=== PATIENT | female | born 1940 | race Caucasian/White ===

== ENCOUNTER 2016-12-13 21:59 | Inpatient (IN) | payer MEDICARE, OTHER ==
[~2016-12-13] VITALS: Ht 157.5 cm; Wt 67.0 kg
[~2016-12-13 21:59] MED LIST: ALEN70TA30 PO; MELO-110 PO; METH10TA5 PO; MONT10TA21 PO; TRAM-408 PO
[2016-12-13 22:13] VITALS: Ht 157.5 cm; Wt 67.0 kg
[2016-12-14] MEDS ORDERED: SOD CHLORIDE 0.9% 500 ML IV STA (01:02)
[2016-12-14] MEDS ORDERED: morphine 4 MG/ML VIAL IV STA (01:02)
[2016-12-14] MEDS ORDERED: ONDANSETRON 4 MG INJ IV STA (01:02)
--- NOTE | 2016-12-14 01:52 | RADRPT ---
PROCEDURE: XR Chest. CLINICAL INDICATION: Abdominal pain. TECHNIQUE: Single frontal view of the chest. COMPARISON: 11/22/2011. FINDINGS: The cardiomediastinal silhouette is within normal limits. Decreased lung inflation over interval wit h mild left costophrenic angle atelectasis. The lungs are otherwise clear. No signs of pleural fluid or pneumothorax are seen. The osseous structures and soft tissues are unremarkable. IMPRESSION: Mild left costophrenic angle atelectasis. RPTAT: [facility] Physician Denise Date Time Electronically viewed and signed by Physician Denise on 12/14/2016 01:51 RS/
[2016-12-14 01:56] LABS: BASOPHILS % 0.3 % (0.0-2.0); EOSINOPHILS # 0.1 10^3/ul (0.0-0.5); EOSINOPHILS % 0.8 % (0.0-7.0); HEMATOCRIT 36.9 % (37.0-47.0); HEMOGLOBIN 11.6 g/dl (12.0-16.0); LYMPHOCYTES # 2.7 10^3/ul (0.8-2.9); LYMPHOCYTES % 22.6 % (15.0-51.0); MEAN CORPUSCULAR HEMOGLOBIN 30.8 pg (29.0-33.0); MEAN CORPUSCULAR HGB CONC 31.4 g/dl (32.0-37.0); MEAN CORPUSCULAR VOLUME 97.9 fl (82.0-101.0); MEAN PLATELET VOLUME 9.4 fl (7.4-10.4); MONOCYTE # 1.1 10^3/ul (0.3-0.9); PLATELET COUNT 360 10^3/UL (140-415); RED BLOOD COUNT 3.77 10^6/ul (4.20-5.40); RED CELL DISTRIBUTION WIDTH 13.1 % (11.5-14.5); WHITE BLOOD COUNT 11.9 10^3/ul (4.8-10.8)
--- NOTE | 2016-12-14 02:07 | RADRPT ---
PROCEDURE: CT Abdomen and Pelvis without contrast. CLINICAL INDICATION: Abdominal pain TECHNIQUE: CT scan of the abdomen and pelvis without contrast was performed on a multidetector hig h-resolution CT scanner. The patient was scanned without intravenous contrast. Coronal and sagittal reformatted images were obtained from the axial source images. Images were reviewed on a high-resol RFEyeD PACS workstation. The total exam CTDI equals 11.14 mGy and the total exam DLP equals 628.88 mG y-cm. One or more the following dose reduction techniques were utilized: Automated exposure control, adjus tment of the mA and / or kV according to patient's size, or use of iterative reconstruction techniqu e. COMPARISON: 11/22/2011 FINDINGS: Linear atelectasis/fibrosis at the lung bases. No pneumoperitoneum is seen. Hepatic steatosis again seen. The length of the liver equals 18.1 cm consistent with minimal hepatomegaly minimally larger c ompared to previous study. Small calcified granulomas again seen in the liver. Cholelithiasis again seen. No biliary dilatation is seen. There is peripancreatic soft tissue stranding appearing since p revious study suggestive of acute pancreatitis. No abnormality seen in the spleen, adrenals or right kidney. Arterial calcification in left renal hilum appearing since the previous study. The stomach is not distended. There is likely a small hiatal hernia again seen. No abdominal aortic aneurysm is seen. No abnormality of the bladder is seen. No definite abnormality of the uterus or adnexal region s is seen on CT. Beam-hardening artifact arising from the right hip prosthesis projected over lower pelvis limiting evaluation. Soft tissue stranding in subcutaneous fat lateral to the right hip increased compared to previous study. There is nonspecific. No ascites is seen. Diverticula in the s igmoid, transverse colon. There is no specific evidence of acute diverticulitis seen. There is an un remarkable appendix. No dilated small bowel loops are seen. No enlarged lymph nodes are seen in the abdomen or pelvis. Degenerative changes in thoracolumbar spine. Central spinal stenosis in lumbar sp ine. Degenerative changes at sacroiliac joints. Diffuse osteopenia. Mild osteoarthrosis at left hip. Compression fracture L4 vertebral body again seen. IMPRESSION: Suggestive of acute pancreatitis appearing since previous study. Hepatic steatosis again seen. Minim al hepatomegaly with liver minimally increased in size compared to previous study. Cholelithiasis ag ain seen. Likely small hiatal hernia again seen. Please see above. RPTAT: HJES .Dmitriy Dubon MD, Date Time Electronically viewed and signed by .Dmitriy Dubon MD, on 12/14/2016 02:06 .S/
[2016-12-14 02:08] LABS: ALANINE AMINOTRANSFERASE 193 IU/L (13-69); ALBUMIN 4.4 g/dl (3.3-4.9); ALKALINE PHOSPHATASE 117 IU/L (42-121); ANION GAP 16 (8-16); ASPARTATE AMINO TRANSFERASE 73 IU/L (15-46); BILIRUBIN,INDIRECT 0.4 mg/dl (0-1.1); BILIRUBIN,TOTAL 0.4 mg/dl (0.2-1.3); BLOOD UREA NITROGEN 10 mg/dl (7-20); CALCIUM 9.4 mg/dl (8.4-10.2); CARBON DIOXIDE 26 mmol/L (21-31); CHLORIDE 103 mmol/L (97-110); CREATININE 0.64 mg/dl (0.44-1.00); GLUCOSE 113 mg/dl (70-220); POTASSIUM 3.7 mmol/L (3.5-5.1); SODIUM 141 mmol/L (135-144); TOTAL PROTEIN 8.4 g/dl (6.1-8.1)
[2016-12-14 02:20] LABS: TROPONIN-I < 0.012 ng/ml (0.00-0.12)
[2016-12-14 02:45] LABS: ADD UMIC YES; UR ASCORBIC ACID NEGATIVE (NEGATIVE); UR BACTERIA FEW /HPF (NONE SEEN); UR BILIRUBIN (Dip) NEGATIVE (NEGATIVE); UR BLOOD (Dip) NEGATIVE (NEGATIVE); UR CLARITY SLIGHTLY CLOUDY (CLEAR); UR COLOR YELLOW (YELLOW); UR GLUCOSE (Dip) NEGATIVE (NEGATIVE); UR KETONES (Dip) TRACE mg/dL (NEGATIVE); UR LEUKOCYTE ESTERASE (Dip) 2+ Leu/ul (NEGATIVE); UR NITRITE (Dip) NEGATIVE (NEGATIVE); UR RBC 2 /HPF (0-5); UR SPECIFIC GRAVITY (Dip) 1.013 (1.003-1.030); UR SQUAMOUS EPITHELIAL CELL FEW /HPF (FEW); UR TOTAL PROTEIN (Dip) NEGATIVE (NEGATIVE); UR UROBILINOGEN (Dip) 2+ mg/dL (NEGATIVE)
--- NOTE | 2016-12-14 02:51 | ERA ---
ER Documentation Chief Complaint Date/Time DATE: 12/14/16 TIME: 02:50 Chief Complaint AP +N/V X2DAYS. +FEVER TODAY. CONSTIPAITION X3 DAYS HPI 76 female abdominal pain nausea vomiting for 2 days. She has episodes of vomiting which she has had a bile in them. No fevers no chills. She is also complains of constipation for 3 days. Pain is mild to moderate intensity. No other current issues. ROS All systems reviewed and are negative except as per history of present illness. Medications Home Meds Reported Medications Tramadol Hcl (Rybix Odt) 50 Mg Tab.rapdis, PO TID 11/22/11 Alendronate Sodium* (Fosamax*) 70 Mg Tablet, PO 11/22/11 Montelukast Sodium* (Singulair*) 10 Mg Tablet, PO DAILY 11/22/11 Meloxicam* (Mobic*) 15 Mg Tablet, PO DAILY 11/22/11 Methimazole* (Methimazole*) 10 Mg Tablet, PO DAILY 11/22/11 Allergies Allergies: Coded Allergies: No Known Allergy (Unverified , 12/13/16) PMhx/Soc Medical and Surgical Hx: pt denies Medical Hx History of Surgery: Yes (R Hip) Anesthesia Reaction: No ( ) Hx Neurological Disorder: No Hx Respiratory Disorders: No Hx Cardiac Disorders: No (htn, hyperlipidemia ) Hx Psychiatric Problems: No Hx Miscellaneous Medical Probl: No Hx Alcohol Use: No Hx Substance Use: No Hx Tobacco Use: No Smoking Status: Never smoker Physical Exam Vitals Vital Signs Date Time Temp Pulse Resp B/P Pulse Ox O2 Delivery O2 Flow Rate FiO2 12/13/16 22:13 99.2 110 20 179/73 94 Physical Exam Const: [] Head: Atraumatic Eyes: Normal Conjunctiva ENT: Normal External Ears, Nose and Mouth. Neck: Full range of motion..~ No meningismus. Resp: Clear to auscultation bilaterally Cardio: Regular rate and rhythm, no murmurs Abd: Soft, non tender, non distended. Normal bowel sounds Skin: No petechiae or rashes Back: No midline or flank tenderness Ext: No cyanosis, or edema Neur: Awake and alert Psych: Normal Mood and Affect Result Diagram: 12/14/16 0127 12/14/16 0127 Results 24 hrs Laboratory Tests Test 12/14/16 01:27 12/14/16 02:15 White Blood Count 11.910^3/ul Red Blood Count 3.7710^6/ul Hemoglobin 11.6g/dl Hematocrit 36.9% Mean Corpuscular Volume 97.9fl Mean Corpuscular Hemoglobin 30.8pg Mean Corpuscular Hemoglobin Concent 31.4g/dl Red Cell Distribution Width 13.1% Platelet Count 19380^3/UL Mean Platelet Volume 9.4fl Neutrophils % 67.0% Lymphocytes % 22.6% Monocytes % 9.0% Eosinophils % 0.8% Basophils % 0.3% Nucleated Red Blood Cells % 0.0/100WBC Neutrophils # (Manual) 8.010^3/ul Lymphocytes # 2.710^3/ul Monocytes # 1.110^3/ul Eosinophils # 0.110^3/ul Basophils # 0.010^3/ul Nucleated Red Blood Cells # 0.010^3/ul Sodium Level 141mmol/L Potassium Level 3.7mmol/L Chloride Level 103mmol/L Carbon Dioxide Level 26mmol/L Anion Gap 16 Blood Urea Nitrogen 10mg/dl Creatinine 0.64mg/dl Glucose Level 113mg/dl Calcium Level 9.4mg/dl Total Bilirubin 0.4mg/dl Direct Bilirubin 0.00mg/dl Indirect Bilirubin 0.4mg/dl Aspartate Amino Transf (AST/SGOT) 73IU/L Alanine Aminotransferase (ALT/SGPT) 193IU/L Alkaline Phosphatase 117IU/L Troponin I < 0.012ng/ml Total Protein 8.4g/dl Albumin 4.4g/dl Globulin 4.00g/dl Albumin/Globulin Ratio 1.10 Lipase 162U/L Urine Color YELLOW Urine Clarity SLIGHTLY CLOUDY Urine pH 5.0 Urine Specific [place] 1.013 Urine Ketones TRACEmg/dL Urine Nitrite NEGATIVEmg/dL Urine Bilirubin NEGATIVEmg/dL Urine Urobilinogen 2+mg/dL Urine Leukocyte Esterase 2+Dg/ul Urine Microscopic RBC 2/HPF Urine Microscopic WBC 27/HPF Urine Squamous Epithelial Cells FEW/HPF Urine Bacteria FEW/HPF Urine Hemoglobin NEGATIVEmg/dL Urine Glucose NEGATIVEmg/dL Urine Total Protein NEGATIVEmg/dl Current Medications Medications (Trade) Dose Ordered Sig/Lelo Route PRN Reason Start Time Stop Time Status Last Admin Dose Admin Sodium Chloride (NS) 500 ml @ 500 mls/hr Q1H STAT IV 12/14/16 01:02 12/14/16 02:01 DC 12/14/16 01:53 Morphine Sulfate (morphine) 4 mg ONCE STAT IV 12/14/16 01:02 12/14/16 01:05 DC 12/14/16 02:32 Ondansetron HCl (Zofran Inj) 4 mg ONCE STAT IV 12/14/16 01:02 12/14/16 01:05 DC 12/14/16 02:31 Procedures/MDM Medical decision-makin-year-old female with acute pancreatitis. At this point patient will be admitted to the hospitalist. Departure Diagnosis: Primary Impression: Pancreatitis Qualified Code: K85.90 - Acute pancreatitis, unspecified complication status, unspecified pancreatitis type Condition: Serious JOJO DERAS Dec 14, 2016 02:51
[2016-12-14] MEDS ORDERED: ALBU8.5H3 INH (03:29)
[2016-12-14] MEDS ORDERED: ESOM40CA PO (03:29)
[2016-12-14] MEDS ORDERED: VALS80TA2 PO (03:29)
[2016-12-14] MEDS ORDERED: METO25TA7 PO (03:29)
[2016-12-14] MEDS ORDERED: TOLT4CAP13 PO (03:29)
[2016-12-14] MEDS ORDERED: NAPR-685 PO (03:29)
[2016-12-14] MEDS ORDERED: ASPI-664 PO (03:29)
[2016-12-14] MEDS ORDERED: METF500T4 PO (03:29)
[2016-12-14] MEDS ORDERED: MECL-77 PO (03:29)
[2016-12-14] MEDS ORDERED: IBUP-1542 PO (03:29)
[2016-12-14] MEDS ORDERED: PRAV20TA63 PO (03:29)
[2016-12-14] MEDS ORDERED: DEXTROSE 5%-0.45% NACL 1,000 ML IV SCH (09:10)
[2016-12-14] MEDS ORDERED: ACETAMINOPHEN 325 MG TAB PO PRN (09:30)
[2016-12-14] MEDS ORDERED: NACL 0.9% 3 ML SYG IV SCH (09:30)
[2016-12-14] MEDS ORDERED: ALBUTEROL/IPRATROPIUM (NEB) 3 ML AMP HHN PRN (09:30)
[2016-12-14] MEDS ORDERED: morphine 2 MG INJ IV PRN (09:30)
[2016-12-14] MEDS ORDERED: ONDANSETRON 4 MG INJ IV PRN (09:30)
[2016-12-14] MEDS ORDERED: GLUCAGON 1 MG INJ IM PRN (10:00)
[2016-12-14] MEDS ORDERED: GLUCOSE GEL 15 GRAM TUBE PO PRN ×2 (10:00)
[2016-12-14] MEDS ORDERED: DEXTROSE 50% 50 ML SYRINGE IV PRN ×2 (10:00)
[2016-12-14] MEDS ORDERED: GLUCOSE GEL 15 GRAM TUBE BUCCAL PRN (10:00)
--- NOTE | 2016-12-14 10:52 | HP ---
Date/Time of Note Date/Time of Note DATE: 12/14/16 TIME: 10:46 Assessment/Plan VTE Prophylaxis VTE Prophylaxis Intervention: SCD's Assessment/Plan Assessment/Plan 1. Abdominal pain, probably secondary to gallstone pancreatitis -Keep n.p.o. with IV fluid -Pain management -Surgical consult has been placed given cholelithiasis and a likely finding of acute pancreatitis on a CT scan 2. Hypertension -Antihypertensives adjustment as needed 3. Type 2 diabetes -Insulin while in-house 4. History of dyslipidemia -Continue statin HPI/ROS Admit Date/Time Admit Date/Time Hx of Present Illness This is a 76-year-old female with a history of hypertension diabetes dyslipidemia who presents to the emergency department complaining of abdominal pain. Pain started 3 days ago. At mainly located in the periumbilical area. She reported associated nonbloody nonbilious emesis. She said that she has not had a bowel movement for the past 3 days. No fever or chills. She also denied chest pain or shortness of breath. She denied drinking alcohol. When she presented to the ER, labs shows AST of 73, ALT almost 200. Lipase is normal at 162. CT abdomen/pelvis however showedSuggestive of acute pancreatitis appearing since previous study. Hepatic steatosis again seen. Minimal hepatomegaly with liver minimally increased in size compared to previous study. Cholelithiasis again seen. Likely small hiatal hernia again seen. PMH/Family/Social Social History Smoking Status: Never smoker Exam/Review of Systems Vital Signs Vitals Vital Signs Date Time Temp Pulse Resp B/P Pulse Ox O2 Delivery O2 Flow Rate FiO2 12/14/16 09:11 104 18 126/79 95 Room Air 12/13/16 22:13 99.2 Exam Constitutional: alert, oriented, well developed Head: atraumatic, normocephalic Eyes: EOMI, PERRL Respiratory: clear to auscultation, normal air movement Cardiovascular: nl pulses, regular rate and rhythm Gastrointestinal: other (There is some tenderness to deep palpation in the periumbilical area with no guarding, rebound tenderness or rigidity. There is positive bowel sounds), soft Extremities: normal pulses Labs Result Diagram: 12/14/1612612/14/16 0127 Medications Medications Current Medications Dextrose/Sodium Chloride (D5-1/2ns) 1,000 ml @ 100 mls/hr Q10H IV Last administered on 12/14/16t 09:10; Admin Dose 100 MLS/HR; Start 12/14/16 at 09:10 Ondansetron HCl (Zofran Inj) 4 mg Q6H PRN IV NAUSEA AND/OR VOMITING; Start 03/20 at 09:30 Acetaminophen (Tylenol Tab) 650 mg Q6H PRN PO PAIN LEVEL 1-3 OR FEVER; Start at 09:30 Morphine Sulfate (morphine) 3 mg Q4H PRN IV pain; Start 12/14/16 at 09:30 Diagnostic Test (Pha) (Accu-Chek) 1 ea 02 XX ; Start 12/15/16 at 02:00 Insulin Glargine (Lantus) 13 unit QHS SC ; Start 12/14/16 at 21:00 Aspirin (Halfprin) 81 mg DAILY PO ; Start 12/15/16 at 09:00 Metoprolol Succinate (Toprol Xl) 25 mg DAILY PO ; Start 12/15/16 at 09:00 Pantoprazole (Protonix Tab) 40 mg DAILY@06 PO ; Start 12/15/16 at 06:00 Atorvastatin Calcium (Lipitor) 10 mg DAILY@21 PO ; Start 12/14/16 at 21:00 Miscellaneous Information 1 ea NOTE XX ; Start 12/14/16 at 10:00 Glucose (Glutose) 15 gm Q15M PRN PO DECREASED GLUCOSE; Start 12/14/16 at 10:00 Glucose (Glutose) 22.5 gm Q15M PRN PO DECREASED GLUCOSE; Start 12/14/16 at 10: 00 Dextrose (D50w Syringe) 25 ml Q15M PRN IV DECREASED GLUCOSE; Start 12/14/16 at 10:00 Dextrose (D50w Syringe) 50 ml Q15M PRN IV DECREASED GLUCOSE; Start 12/14/16 at 10:00 Glucagon (Glucagen) 1 mg Q15M PRN IM DECREASED GLUCOSE; Start 12/14/16 at 10:00 Glucose (Glutose) 15 gm Q15M PRN BUCCAL DECREASED GLUCOSE; Start 12/14/16 at 10 :00 JOJO ZAVALETA MD Dec 14, 2016 10:52
[2016-12-14] MEDS: INSULIN ASPART [NOVOLOG] 3 ML PEN SC SCH ×3 (12:00→21:00)
--- NOTE | 2016-12-14 12:18 | QN ---
Documentation Comment Observation Note: Time: 4 hours Family Hx: Negative for diabetes Evaluation: Multiple exams showed improving symptoms and no evidence of clinical decompensation. The patient does not have any obvious need for telemetry at this time and I will downgrade to med surg. She has been here for 14 hours and has had no significant arrhythmias. GUME ERNANDEZ MD Dec 14, 2016 12:18
--- NOTE | 2016-12-14 12:35 | CONS ---
Date/Time of Note Date/Time of Note DATE: 12/14/16 TIME: 12:35 Assessment/Plan Assessment/Plan Additional Assessment/Plan [facility] INPATIENT CONSULTATION NOTE DATE OF SERVICE: 12/14/2016 PLACE OF SERVICE: [facility], emergency department (boarding only) ASSESSMENT AND PLAN: A very-pleasant 76-year-old lady with comorbidity of BMI 27, admitted through the emergency department at [facility] on 12/14/2016 with abdominal pain of unclear etiology. It is unclear to me whether the pain and symptoms are related to the pancreas since her lipase is normal and CT findings are equivocal in my opinion. Gallbladder also could be a suspect, but the appearance of it on the CT scan is again equivocal. In short , I do not see any obvious surgical issues, but agree that the patient should be observed in house and perhaps further testing to be done if needed. With above assessment, I've recommended the followin. Continue current management 2. Will follow with you 3. Labs in a.m. 4. Possible need for right upper quadrant ultrasound or even a HIDA scan if indicated 5. Consider starting clear liquid diet and advancing as tolerated Thank you very much for having me involved in the care of this very pleasant patient and wonderful family. If you have any questions, please feel free to contact me at [phone]. Nature of presenting problem: Moderate severity Please note that, given the multiple number of diagnoses or management options, the moderate amount and/or complexity of data needed to be reviewed, and moderate risk of complications and/or morbidity or mortality, this qualifies as moderate complexity type of decision-making. Disclaimer: Inadvertent spelling and grammatical errors are likely due to EHR/ dictation software use and do not reflect on the quality of delivered patient care. Also, please note that the electronic time recorded on this node does not necessarily reflect the actual time of the visit. Updated clinical summary: A very-pleasant 76-year-old lady with comorbidity of BMI 27, admitted through the emergency department at [facility] on 12/14/2016 with abdominal pain of unclear etiology. Comorbidities: 1. BMI 27 2. Possible small hiatal hernia 3. Mild hepatomegaly 4. Degenerative changes in thoracolumbar spine 5. Central spinal stenosis and lumbar spine. 6. Degenerative changes at sacroiliac joints. 7. Diffuse osteopenia. 8. 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 9. Compression fracture L4 vertebral body. 10. Hepatic steatosis. 11. Cholelithiasis. 12. Hypertension 13. Type 2 diabetes 14. Dyslipidemia CONSULTATION REQUESTED BY: Maya Bernabe MD HISTORY OF PRESENT ILLNESS: The patient is a very pleasant 76-year-old lady with above-mentioned comorbidities whom were kindly asked to consult regarding management of abdominal pain. 3 day history of abdominal pain in the periumbilical region. Nonbloody and nonbilious emesis reported. Constipated for the last 3 days. No other major symptoms. Lipase was normal. WBC 11.9. CT scan report suggested possible pancreatitis. Known cholelithiasis. ALLERGIES: NO KNOWN DRUG ALLERGIES MEDICATIONS Documented in the electronic records and reviewed by me. Please see the electronic records for details, as well as details for inpatient medications which were also reviewed by me. SOCIAL HISTORY: The patient lives with family.-Tob;-ETOH;-IVDU FAMILY HISTORY: There are no significant medical, surgical or oncologic issues in the family as reported by the patient or reflected in the chart. REVIEW OF SYSTEMS: Other than mentioned above, there were no other pertinent positives or pertinent negatives in an otherwise complete 14 point review of systems. PHYSICAL EXAMINATION GENERAL: The patient appears to be a very pleasant lady of [place] descent lying in bed, appearing stated age, and otherwise in no acute distress. BMI: 27 VITAL SIGNS: AVSS (please also see auto important data if available as well as the electronic records) HEENT: Normocephalic and atraumatic. Extraocular muscles and hearing are grossly intact bilaterally and symmetrically. Sclerae are nonicteric. Oral cavity is clear; oral mucosa appear to be pink and moist. Dentition: Fair to poor with dentures. NECK: Supple. There is no lymphadenopathy or JVD. There is no submental, submandibular or supraclavicular lymphadenopathy. CHEST: Rises symmetrically with each breath; patient is breathing comfortably. There are no audible wheezes, rales or rhonchi on the gross exam. HEART: Pulse is regular and palpable on the right wrist. Capillary refill is normal. Carotid pulses are palpable bilaterally and symmetrically in the neck. EXTREMITIES: Lower extremities contain no pitting edema around the ankles bilaterally and symmetrically. ABDOMEN: Abdomen is soft, nontender and nondistended. No evidence of ascites, organomegaly, caput medusae, engorged subcutaneous veins, or other abnormalities. There are no peritoneal signs or guarding. SKIN: Appears to be pink and feels warm to touch. NEUROLOGIC: Awake, alert, and follows commands appropriately. LABORATORY DATA: See below IMAGING: See electronic chart. Please note that I've personally reviewed all pertinent available images and I agree in general with their overall reported findings. Consultation Date/Type/Reason Admit Date/Time Social History Smoking Status: Never smoker Exam/Review of Systems Vital Signs Vitals Vital Signs Date Time Temp Pulse Resp B/P Pulse Ox O2 Delivery O2 Flow Rate FiO2 12/14/16 12:26 97 18 122/65 96 Room Air 12/13/16 22:13 99.2 Results Result Diagram: 12/14/1612612/14/16126 Results 24 hrs Laboratory Tests Test 12/14/16 01:27 12/14/16 02:15 White Blood Count 11.9 H Red Blood Count 3.77 L Hemoglobin 11.6 L Hematocrit 36.9 L Mean Corpuscular Volume 97.9 Mean Corpuscular Hemoglobin 30.8 Mean Corpuscular Hemoglobin Concent 31.4 L Red Cell Distribution Width 13.1 Platelet Count 360 Mean Platelet Volume 9.4 Neutrophils % 67.0 Lymphocytes % 22.6 Monocytes % 9.0 Eosinophils % 0.8 Basophils % 0.3 Nucleated Red Blood Cells % 0.0 Neutrophils # (Manual) 8.0 H Lymphocytes # 2.7 Monocytes # 1.1 H Eosinophils # 0.1 Basophils # 0.0 Nucleated Red Blood Cells # 0.0 Sodium Level 141 Potassium Level 3.7 Chloride Level 103 Carbon Dioxide Level 26 Anion Gap 16 Blood Urea Nitrogen 10 Creatinine 0.64 Glucose Level 113 Calcium Level 9.4 Total Bilirubin 0.4 Direct Bilirubin 0.00 Indirect Bilirubin 0.4 Aspartate Amino Transf (AST/SGOT) 73 H Alanine Aminotransferase (ALT/SGPT) 193 H Alkaline Phosphatase 117 Troponin I < 0.012 Total Protein 8.4 H Albumin 4.4 Globulin 4.00 H Albumin/Globulin Ratio 1.10 Lipase 162 Urine Color YELLOW Urine Clarity SLIGHTLY CLOUDY A Urine pH 5.0 Urine Specific [place] 1.013 Urine Ketones TRACE A Urine Nitrite NEGATIVE Urine Bilirubin NEGATIVE Urine Urobilinogen 2+ H Urine Leukocyte Esterase 2+ H Urine Microscopic RBC 2 Urine Microscopic WBC 27 H Urine Squamous Epithelial Cells FEW Urine Bacteria FEW A Urine Hemoglobin NEGATIVE Urine Glucose NEGATIVE Urine Total Protein NEGATIVE Medications Medications Current Medications Dextrose/Sodium Chloride (D5-1/2ns) 1,000 ml @ 100 mls/hr Q10H IV Last administered on 12/14/16t 09:10; Admin Dose 100 MLS/HR; Start 12/14/16 at 09:10 Ondansetron HCl (Zofran Inj) 4 mg Q6H PRN IV NAUSEA AND/OR VOMITING; Start 03/20 at 09:30 Acetaminophen (Tylenol Tab) 650 mg Q6H PRN PO PAIN LEVEL 1-3 OR FEVER; Start at 09:30 Morphine Sulfate (morphine) 3 mg Q4H PRN IV pain; Start 12/14/16 at 09:30 Diagnostic Test (Pha) (Accu-Chek) 1 ea 02 XX ; Start 12/15/16 at 02:00 Insulin Glargine (Lantus) 13 unit QHS SC ; Start 12/14/16 at 21:00 Aspirin (Halfprin) 81 mg DAILY PO ; Start 12/15/16 at 09:00 Metoprolol Succinate (Toprol Xl) 25 mg DAILY PO ; Start 12/15/16 at 09:00 Pantoprazole (Protonix Tab) 40 mg DAILY@06 PO ; Start 12/15/16 at 06:00 Atorvastatin Calcium (Lipitor) 10 mg DAILY@21 PO ; Start 12/14/16 at 21:00 Miscellaneous Information 1 ea NOTE XX ; Start 12/14/16 at 10:00 Glucose (Glutose) 15 gm Q15M PRN PO DECREASED GLUCOSE; Start 12/14/16 at 10:00 Glucose (Glutose) 22.5 gm Q15M PRN PO DECREASED GLUCOSE; Start 12/14/16 at 10: 00 Dextrose (D50w Syringe) 25 ml Q15M PRN IV DECREASED GLUCOSE; Start 12/14/16 at 10:00 Dextrose (D50w Syringe) 50 ml Q15M PRN IV DECREASED GLUCOSE; Start 12/14/16 at 10:00 Glucagon (Glucagen) 1 mg Q15M PRN IM DECREASED GLUCOSE; Start 12/14/16 at 10:00 Glucose (Glutose) 15 gm Q15M PRN BUCCAL DECREASED GLUCOSE; Start 12/14/16 at 10 :00 GABY LUCERO M.D. Dec 14, 2016 12:35
[2016-12-14] MEDS: DEXTROSE 5%-0.45% NACL 1,000 ML IV SCH ×2 (13:00→22:01)
[2016-12-14 13:30] VITALS: BP 122/65; PULSE 100; RESP 16
[2016-12-14 16:00] VITALS: BP 133/61; PULSE 100; RESP 18
[2016-12-14] MEDS ORDERED: LEVOFLOXACIN 750MG/D5W (PMX) 150 ML IVPB SCH (18:00)
[2016-12-14 20:00] VITALS: BP 127/66; PULSE 104; PULSE 96; RESP 16
--- NOTE | 2016-12-14 20:34 | RADRPT ---
PROCEDURE: Right upper quadrant abdominal ultrasound. CLINICAL INDICATION: Abdominal pain TECHNIQUE: Falcon scale and color doppler ultrasound images of the right upper quadrant of the abdom en. COMPARISON: CT abdomen pelvis 12/14/2016 FINDINGS: Pancreas: Not well visualized. Liver: Morphology: Mildly enlarged measuring 17.8 cm. Contour:Normal, no evidence of nodularity. Echogenicity: Increase Focal lesions:None. Main portal vein: Patent with hepatopetal flow. Biliary System: Gallbladder wall: Normal thickness. Gallstones: Nearly filled with gallstones Intrahepatic bile ducts: Normal caliber. Common bile duct diameter (mm): 3.4 Kidneys: Right length (cm) : 10.0 Right cortical thickness: Normal. Echogenicity: Normal. Hydronephrosis: None. Renal calculi: None. Focal lesions: None. Free fluid/ascites: None. Abdominal aorta: Not visualized by the choreography director. Other findings: None. IMPRESSION: Cholelithiasis without evidence of abnormal gallbladder wall thickening to suggest cholecystitis. Normal caliber of the intrahepatic and extrahepatic biliary system. RPTAT: AADD .Jasper Perez MD, MD Date Time Electronically viewed and signed by .Jasper Perez MD, on 12/14/2016 20:34 .B/
[2016-12-14] MEDS ORDERED: INSULIN GLARGINE [LANtus] 3 ML PEN SC SCH (21:00)
[2016-12-14] MEDS ORDERED: ATORVASTATIN 10 MG TAB PO SCH (21:00)
[2016-12-14 23:27] VITALS: PULSE 96
[2016-12-15] VITALS (11 sets, daily range): BP systolic 118–174; BP diastolic 56–78; PULSE 76–90; RESP 16–19
[2016-12-15] MEDS ORDERED: ACCU-CHEK XX SCH (02:00)
[2016-12-15] MEDS: DEXTROSE 5%-0.45% NACL 1,000 ML IV SCH ×2 (05:39→16:17)
[2016-12-15] MEDS ORDERED: PANTOPRAZOLE (EC) 40 MG TAB PO SCH (06:00)
[2016-12-15 07:26] LABS: BASOPHILS % 0.3 % (0.0-2.0); EOSINOPHILS # 0.1 10^3/ul (0.0-0.5); EOSINOPHILS % 0.8 % (0.0-7.0); HEMATOCRIT 34.7 % (37.0-47.0); HEMOGLOBIN 10.7 g/dl (12.0-16.0); LYMPHOCYTES # 1.7 10^3/ul (0.8-2.9); LYMPHOCYTES % 18.4 % (15.0-51.0); MEAN CORPUSCULAR HGB CONC 30.8 g/dl (32.0-37.0); MEAN CORPUSCULAR VOLUME 97.2 fl (82.0-101.0); MEAN PLATELET VOLUME 9.3 fl (7.4-10.4); MONOCYTE # 0.9 10^3/ul (0.3-0.9); MONOCYTES % 9.5 % (0.0-11.0); NEUTROPHILS % 70.6 % (39.0-77.0); PLATELET COUNT 325 10^3/UL (140-415); RED BLOOD COUNT 3.57 10^6/ul (4.20-5.40); RED CELL DISTRIBUTION WIDTH 13.1 % (11.5-14.5)
[2016-12-15 07:56] LABS: ALBUMIN 3.4 g/dl (3.3-4.9); BILIRUBIN,INDIRECT 0.2 mg/dl (0-1.1); BILIRUBIN,TOTAL 0.2 mg/dl (0.2-1.3); CREATININE 0.59 mg/dl (0.44-1.00); MAGNESIUM 2.2 mg/dl (1.7-2.5); PHOSPHORUS 2.7 mg/dl (2.5-4.9); POTASSIUM 4.2 mmol/L (3.5-5.1); TOTAL PROTEIN 6.8 g/dl (6.1-8.1)
[2016-12-15] MEDS: INSULIN ASPART [NOVOLOG] 3 ML PEN SC SCH ×3 (08:27→17:42)
[2016-12-15] MEDS ORDERED: METOPROLOL (XL) 25 MG TAB PO SCH (09:00)
[2016-12-15] MEDS ORDERED: ASPIRIN (EC) 81 MG TAB PO SCH (09:00)
--- NOTE | 2016-12-15 14:03 | PDOCDIS ---
Discharge Instructions CONDITION Patient Condition: Stable HOME CARE INSTRUCTIONS: Diet Instructions: Low Fat /Cholesterol ACTIVITY: Activity Restrictions: Slowly Increase Activity Avoid heavy lifting FOLLOW UP/APPOINTMENTS Follow-up Plan Please take your medications as prescribed. Please follow-up with your primary care doctor in the clinic in the next 1-2 weeks. LIVIA OATES Dec 15, 2016 14:03
[2016-12-15] MEDS ORDERED: ONDA-43 PO (14:04)
--- NOTE | 2016-12-15 14:11 | DS ---
Date/Time of Note Date/Time of Note DATE: 12/15/16 TIME: 14:08 Discharge Summary Admission/Discharge Info Admit Date/Time Dec 14, 2016 at 02:34 Discharge Date/Time Discharge Diagnosis 1. Abdominal pain: Likely secondary to gallstones, although questionable findings of pancreatitis on CT scan but normal lipase. And right upper quadrant ultrasound does not show any signs of any active cholecystitis 2. Essential hypertension 3. Type 2 diabetes 4. High cholesterol Patient Condition: Stable Hx of Present Illness Hospital Course 76-year-old female with a history of hypertension diabetes dyslipidemia who presents to the emergency department complaining of abdominal pain. Pain started 3 days ago prior to admission. At mainly located in the periumbilical area. She reported associated nonbloody nonbilious emesis. She said that she has not had a bowel movement for the past 3 days. No fever or chills. She also denied chest pain or shortness of breath. She denied drinking alcohol. When she presented to the ER, labs shows AST of 73, ALT almost 200. Lipase is normal at 162. CT abdomen/pelvis however showed: Suggestive of acute pancreatitis appearing since previous study. Hepatic steatosis again seen. Minimal hepatomegaly with liver minimally increased in size compared to previous study. Cholelithiasis again seen. Likely small hiatal hernia again seen. So the patient was admitted to telemetry floor, seen by general surgery team, she was conservatively managed for her abdominal pain. The symptoms improved. Her LFTs remain normal, her lipase was normal. We started her on clear liquid diet on the day of discharge per surgery recommendations, and if she is able to tolerate that with advancement of that she will be discharged home later today in improved condition. We also want to get physical therapy evaluation before being discharged today in the event the patient needs any home health needs or nursing or physical therapy first. Her right upper quadrant ultrasound showed cholelithiasis without evidence of abnormal gallbladder wall thickening to suggest cholecystitis, and normal caliber of the intrahepatic and extrahepatic biliary system. See below for full list of discharge medications. Home Meds Active Scripts Ondansetron Hcl* (Zofran*) 4 Mg Tab, 4 MG PO Q6H Y for NAUSEA AND OR VOMITING, # 20 TAB Prov:LIVIA OATES 12/15/16 Reported Medications Valsartan* (Diovan*) 80 Mg Tablet, 80 MG PO DAILY, TAB 12/14/16 Metoprolol Succinate* (Toprol XL*) 25 Mg Tab.sr.24h, 25 MG PO DAILY, #30 TAB 12/14/16 Esomeprazole Mag Trihydrate (Nexium) 40 Mg Capsule.dr, 40 MG PO DAILY, #30 CAP 12/14/16 Tolterodine Tartrate* (Tolterodine Tartrate* ER) 4 Mg Cap.er.24h, 4 MG PO DAILY , #30 CAP 12/14/16 Albuterol Sulfate* (Proair HFA*) 8.5 Gm Hfa.aer.ad, 2 PUFF INH Q4, #1 INHALER 12/14/16 Aspirin* (Aspirin* EC) 81 Mg Tablet.dr, 81 MG PO DAILY, TAB 12/14/16 Pravastatin Sodium* (Pravastatin Sodium*) 20 Mg Tablet, 20 MG PO HS, TAB 12/14/16 Metformin* (Glucophage*) 500 Mg Tab, 500 MG PO WITH BREAKFAST, #30 TAB 12/14/16 Naproxen* (Naproxen*) 375 Mg Tablet, 375 MG PO BID Y for PAIN, TAB 12/14/16 Meclizine Hcl* (Meclizine Hcl*) 25 Mg Tablet, 25 MG PO Q8H Y for DIZZINESS, TAB 12/14/16 Discontinued Reported Medications Ibuprofen* (Ibuprofen*) 600 Mg Tablet, 600 MG PO Q6, TAB 12/14/16 Tramadol Hcl (Rybix Odt) 50 Mg Tab.rapdis, PO TID 11/22/11 Alendronate Sodium* (Fosamax*) 70 Mg Tablet, PO 11/22/11 Montelukast Sodium* (Singulair*) 10 Mg Tablet, PO DAILY 11/22/11 Meloxicam* (Mobic*) 15 Mg Tablet, PO DAILY 11/22/11 Methimazole* (Methimazole*) 10 Mg Tablet, PO DAILY 11/22/11 Follow-up Plan Please take your medications as prescribed. Please follow-up with your primary care doctor in the clinic in the next 1-2 weeks. Primary Care Provider Ashli Negrete Time spent on discharge: > 30 minutes Pending Labs Laboratory Tests Test 12/14/16 14:19 12/14/16 16:51 12/14/16 17:49 12/14/16 23:23 Bedside Glucose 129mg/dL (70-220) 149mg/dL (70-220) 160mg/dL (70-220) Hemoglobin A1c 6.5% (0-5.9) Test 12/15/16 07:02 12/15/16 08:19 12/15/16 12:56 White Blood Count 9.010^3/ul (4.8-10.8) Red Blood Count 3.5710^6/ul (4.20-5.40) Hemoglobin 10.7g/dl (12.0-16.0) Hematocrit 34.7% (37.0-47.0) Mean Corpuscular Volume 97.2fl (82.0-101.0) Mean Corpuscular Hemoglobin 30.0pg (29.0-33.0) Mean Corpuscular Hemoglobin Concent 30.8g/dl (32.0-37.0) Red Cell Distribution Width 13.1% (11.5-14.5) Platelet Count 91483^3/UL (140-415) Mean Platelet Volume 9.3fl (7.4-10.4) Neutrophils % 70.6% (39.0-77.0) Lymphocytes % 18.4% (15.0-51.0) Monocytes % 9.5% (0.0-11.0) Eosinophils % 0.8% (0.0-7.0) Basophils % 0.3% (0.0-2.0) Nucleated Red Blood Cells % 0.0/100WBC (0.0-0.0) Neutrophils # (Manual) 6.310^3/ul (1.7-7.5) Lymphocytes # 1.710^3/ul (0.8-2.9) Monocytes # 0.910^3/ul (0.3-0.9) Eosinophils # 0.110^3/ul (0.0-0.5) Basophils # 0.010^3/ul (0.0-0.1) Nucleated Red Blood Cells # 0.010^3/ul (0.0-0.0) Sodium Level 137mmol/L (135-144) Potassium Level 4.2mmol/L (3.5-5.1) Chloride Level 102mmol/L (97-110) Carbon Dioxide Level 28mmol/L (21-31) Anion Gap 11 (8-16) Blood Urea Nitrogen 5mg/dl (7-20) Creatinine 0.59mg/dl (0.44-1.00) Glucose Level 154mg/dl (70-220) Calcium Level 9.0mg/dl (8.4-10.2) Phosphorus Level 2.7mg/dl (2.5-4.9) Magnesium Level 2.2mg/dl (1.7-2.5) Total Bilirubin 0.2mg/dl (0.2-1.3) Direct Bilirubin 0.00mg/dl (0.00-0.20) Indirect Bilirubin 0.2mg/dl (0-1.1) Aspartate Amino Transf (AST/SGOT) 29IU/L (15-46) Alanine Aminotransferase (ALT/SGPT) 106IU/L (13-69) Alkaline Phosphatase 82IU/L (42-121) Total Protein 6.8g/dl (6.1-8.1) Albumin 3.4g/dl (3.3-4.9) Globulin 3.40g/dl (1.3-3.2) Albumin/Globulin Ratio 1.00 Lipase 84U/L (23-300) Bedside Glucose 141mg/dL (70-220) 150mg/dL (70-220) LIVIA OATES Dec 15, 2016 14:11
--- NOTE | 2016-12-15 16:50 | PN ---
Date/Time of Note Date/Time of Note DATE: 12/15/16 TIME: 16:49 Assessment/Plan Lines/Catheters IV Catheter Type (from Nrs): Peripheral IV Lares in Place (from Nrs): No Assessment/Plan Assessment/Plan [facility] Progress Note Date of Service: 12/15/2016 Place of service: [facility] fifth floor telemetry Today's Assessment & Plan: Overall stable and doing relatively well. Abdomen remains benign. White blood cell count normalized. Lipase was normal yesterday. Appears that the patient' s symptoms are more related to her urinary tract infection. No indication for acute surgical intervention. I reached out to family and reviewed above and answered all questions. I also gave them my contact information. Previous assessment that applies today: A very-pleasant 76-year-old lady with comorbidity of BMI 27, admitted through the emergency department at [facility] on 12/14/2016 with abdominal pain of unclear etiology. It is unclear to me whether the pain and symptoms are related to the pancreas since her lipase is normal and CT findings are equivocal in my opinion. Gallbladder also could be a suspect, but the appearance of it on the CT scan is again equivocal. In short, I do not see any obvious surgical issues, but agree that the patient should be observed in house and perhaps further testing to be done if needed. With above assessment, I've recommended the followin. Continue current management 2. Will follow with you 3. Labs in a.m. 4. Advance diet as tolerated Thank you very much for having me involved in the care of this very pleasant patient and wonderful family. If you have any questions, please feel free to contact me at [phone]. Nature of presenting problem: Moderate severity Please note that, given the multiple number of diagnoses or management options, the moderate amount and/or complexity of data needed to be reviewed, and moderate risk of complications and/or morbidity or mortality, this qualifies as moderate complexity type of decision-making. Disclaimer: Inadvertent spelling and grammatical errors are likely due to EHR/ dictation software use and do not reflect on the quality of delivered patient care. Also, please note that the electronic time recorded on this node does not necessarily reflect the actual time of the visit. Updated clinical summary: A very-pleasant 76-year-old lady with comorbidity of BMI 27, admitted through the emergency department at [facility] on 12/14/2016 with abdominal pain of unclear etiology. Comorbidities: 1. BMI 27 2. Possible small hiatal hernia 3. Mild hepatomegaly 4. Degenerative changes in thoracolumbar spine 5. Central spinal stenosis and lumbar spine. 6. Degenerative changes at sacroiliac joints. 7. Diffuse osteopenia. 8. 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 9. Compression fracture L4 vertebral body. 10. Hepatic steatosis. 11. Cholelithiasis. 12. Hypertension 13. Type 2 diabetes 14. Dyslipidemia Subjective: No major events or complaints; no abd pain and under control with medications; no n/v/d; no sob or cp; ? bowel activity; - activity Objective: Vitals: See below I's & O's: See below Exam: GENERAL: On exam, the patient was lying in bed and appeared to be comfortable and in no acute distress. ABDOMEN: Soft, nontender and nondistended. There are no peritoneal signs or guarding. SKIN: Skin appears to be pink and feels warm to touch. NEUROLOGIC: Patient is awake, alert, and follows commands appropriately. Labs: See below Exam/Review of Systems Vital Signs Vitals Vital Signs Date Time Temp Pulse Resp B/P Pulse Ox O2 Delivery O2 Flow Rate FiO2 12/15/16 16:12 79 12/15/16 15:46 97.9 16 129/71 95 12/14/16 20:00 Room Air Intake and Output 12/14/16 12/14/16 12/15/16 15:00 23:00 07:00 Intake Total 1450 ml 780 ml Output Total 600 ml Balance 850 ml 780 ml Results Result Diagram: 12/15/16 0702 12/15/16 0702 GABY LUCERO M.D. Dec 15, 2016 16:50
[2016-12-15] MEDS ORDERED: CIPR500T4 PO (17:39)
== END 2016-12-15 19:55 | disposition home or self-care (01) | DRG 446 ==
LOC: E/R 21:59 → MS3 12-14 02:34 → MS4 12-14 16:28
PROVIDERS: ADMIT Internal Medicine; ATTEND Internal Medicine
DX: K80.80 Other cholelithiasis without obstruction (principal); E11.9 Type 2 diabetes mellitus without complications; I10 Essential (primary) hypertension; E78.00 Pure hypercholesterolemia, unspecified; E78.5 Hyperlipidemia, unspecified
CPT/HCPCS: 36415; 71010; 74176; 76705; 80053; 81001; 82962; 83036; 83690; 83735; 84100; 84484; 85025; 87040; 87086; 93005; 96374; 96375; 97161; J1815; J1956; J2270; J2405; J7040; J7042

== ENCOUNTER 2017-08-01 20:01 | Inpatient (IN) | END 2017-08-04 17:05 | disposition home or self-care (01) | DRG 864 ==